=== PATIENT | female | born 1970 | race Caucasian/White ===

== ENCOUNTER 2018-02-01 14:12 | Inpatient (IN) ==
[2018-02-01] MEDS ORDERED: *HR* FentaNYL (PF) 100 MCG/2 ML VIAL IVP ONE ×3 (14:28→18:37)
--- NOTE | 2018-02-01 14:33 | Emergency Department Note ---
Disposition Clinical Impression: Wrist fracture Qualifiers: Encounter type: initial encounter Fracture type: closed Laterality: left Qualified Code(s): S62.102A - Fracture of unspecified carpal bone, left wrist, initial encounter for closed fracture Disposition: Admitted As Inpatient Condition: Good Time of Disposition: 17:47 General Adult HPI - General Chief complaint: ED Extremity Injury, Upper Stated complaint: fell off ladder, left side distal arm pain Time Seen by Provider: 02/01/18 14:18 Source: patient Mode of arrival: ambulatory Limitations: no limitations Nursing Notes Reviewed: Yes Vital Signs Reviewed: Yes - History of Present Illness HPI Narrative: 47-year-old female presents for evaluation after a fall. Patient had a mechanical fall approximately 6 feet from a ladder. States the latter was on top for. Patient does not exactly know the mechanism of the fall but does state that she did not lose conscious. No nausea vomiting. No neck or back pain. Patient is primarily complaining of pain in her left arm. His pain is worse with movement. Denies any abdominal pain. No chest pain. Patient denies being on blood thinners. Pain Scale: 10 - Related Data Previous Rx's Medication Instructions Recorded Naproxen [Naprosyn] 500 mg PO BID PRN #14 tablet 05/03/15 Amoxicillin/Clavulanate [Augmentin] 875 mg PO BIDWM 7 Days tablet 01/18/16 Methocarbamol [Robaxin] 500 mg PO Q8HR #12 tablet 02/18/17 Naproxen [Naprosyn] 500 mg PO BID #20 tablet 02/18/17 Tramadol HCl [Ultram] 50 mg PO TID PRN #6 tab 03/05/17 Allergies Allergy/AdvReac Type Severity Reaction Status Date / Time Sulfa (Sulfonamide AdvReac See Verified 02/18/17 10:52 Antibiotics) Comments All systems ED: reviewed and negative except as stated. Constitutional: Denies: fever Cardiovascular: Denies: chest pain Respiratory: Denies: cough Gastrointestinal: Denies: abdominal pain, nausea, vomiting Musculoskeletal: Denies: back pain Past Medical History - Past Medical History Source: patient Medical history: Reports: no medical history Surgical history: Reports: hysterectomy Psychiatric history: Reports: anxiety, depression HOSPITAL LABORATORY TECHNICIAN history: Reports: no HOSPITAL LABORATORY TECHNICIAN history - Social History Smoking Status: Current some day smoker Smokeless Tobacco Status: No Alcohol use: Reports: none, occasionally Drug use: Reports: none Physical Exam - General Limitations: no limitations General appearance: alert, in no apparent distress - Head Head exam: atraumatic, normocephalic, normal inspection, other (No signs of basal skull fracture.) - Eye Eye exam: Present: normal appearance, EOMI - ENT ENT exam: normal exam, mucous membranes moist - Neck Neck exam: Present: normal inspection, trachea midline - Chest Chest inspection: Present: normal inspection, symmetric chest wall rise - Respiratory Respiratory exam: Present: normal lung sounds bilaterally. Absent: respiratory distress - Cardiovascular Cardiovascular exam: Present: regular rate, normal rhythm. Absent: systolic murmur - Abdominal Exam Abdominal exam: Present: soft, Non-Tender - Extremities Exam Extremities exam: Present: other (Left upper extremity is held in position of comfort. Flexion at the elbow. Tenderness diffusely along the left forearm. Palpable radial pulse. Brisk cap refill.) - Expanded Upper Extremity Exam Shoulder exam: Present: normal inspection. Absent: tenderness - Back Exam Back exam: Present: normal inspection. Absent: tenderness - Neurological Exam Neurological exam: Present: alert, oriented X3, CN II-XII intact - Skin Skin exam: Present: warm, dry, intact, normal color Course Course Narrative: Patient will get IV IV pain medication as well as imaging of the left arm. Patient with CT of the head neck. Given the mechanism. - Reevaluation(s) Reevaluation #1: Patient seen and examined. Patient orthopedics. Awaiting callback. Patient's updated on plan of care. Patient has been nothing by mouth since approximately 1:30p Time: 15:28 - Consultations Consultation #1: Discussed the case with orthopedics who recommended closed reduction and follow- up on Saturday. Time: 15:36 Consultation #2: Discussed the case with Dr. Hair who felt it the patient should undergo surgery either later today or tomorrow given the difficulty with a reduction. Patient will be admitted to his service. Time: 17:46 Vital Signs Temperature 98.5 F 02/01/18 14:14 Pulse Rate 76 02/01/18 14:14 Respiratory Rate 15 02/01/18 14:14 Blood Pressure 134/94 02/01/18 14:14 O2 Sat by Pulse Oximetry 100 02/01/18 14:14 Temperature 98.5 F 02/01/18 14:14 Pulse Rate 82 02/01/18 18:51 Respiratory Rate 15 02/01/18 18:51 Blood Pressure 136/96 02/01/18 18:51 O2 Sat by Pulse Oximetry 97 02/01/18 18:51 Oxygen Delivery Oxygen Delivery [1711] Nasal Cannula Oxygen Delivery [1706] Nasal Cannula Oxygen Delivery Room Air Procedures - Orthopedic Fracture Reduction Fracture #1 Consent Obtained: verbal consent, written consent Time Out Performed: Yes Side: left Fracture Reduction Location: other ASA Classification: CLASS I-Normal, healthy patient Analgesia: procedural sedation Technique: direct manipulation Post Reduction X-rays Demonstrate: acceptable reduction Post-reduction neuro exam: intact Post-reduction vascular exam: intact Splint Applied: Yes Patient Tolerated Procedure: well, no complications - Procedural Sedation Indication: fracture/dislocation reduction H&P (including ROS) documented in medical record: Yes Previous reaction to sedatives/anesthetics: No Dentition: No loose teeth or bridges Airway Assessment: Patient can open mouth completely, TMJ function normal Possible difficult airway: No ASA Classification: CLASS I-Normal, healthy patient, CLASS II-Mild systemic disease Plan of Care: Pt appropriate candidate for procedure/moderate/conscious sedation , Risks/benefits of procedure/sedation discussed w/ patient/family Preparation: prison guard supervisor applied, pulse oximeter, capnometry used, supplemental O2 applied, suction/airway equipment at bedside Ketamine: IV Ketamine Dose: 85 Patient Tolerated Procedure: well, no complications Complications: none Medical Decision Making - MDM Narrative Medical decision making narrative: Patient presents after a fall from a ladder. Patient's Norvasc intact. Primary pain is over the left distal forearm. Noted to have acute deformity and presumed fracture. Discussed the initial fracture management with the orthopedic doctor special education instructor recommended closed reduction. Patient was consulted for procedural sedation reduction. Patient was neurovascular intact following the reduction. Orthopedic was contacted regarding post reduction films. Given the difficulty with a close reduction in the severity of the fracture the patient will be admitted to the orthopedic service for surgery. Did order preoperative labs with type and screen and EKG. - Radiology Data Radiology results reviewed: Yes I reviewed the patient's radiology results. Wrist X-Ray 02/01/18 14:29 IMPRESSION: Closed comminuted apex volar angulated intra-articular impacted fracture distal left radius. No acute osseous injury of the left elbow. D/ / Nishant Askew MD / Nishant Askew MD Interpreting Provider: Nishant Askew MD Cervical Spine CT 02/01/18 14:30 IMPRESSION: No acute abnormality of the cervical spine. D/ / Jayden Christopher MD / Jayden Christopher MD Interpreting Provider: Jayden Christopher MD Elbow X-Ray 02/01/18 14:30 IMPRESSION: Closed comminuted apex volar angulated intra-articular impacted fracture distal left radius. No acute osseous injury of the left elbow. D/ / Nishant Askew MD / Nishant Askew MD Interpreting Provider: Nishant Askew MD Cervical Spine CT 02/01/18 14:30 IMPRESSION: No acute abnormality of the cervical spine. D/ / Jayden Christopher MD / Jayden Christopher MD Interpreting Provider: Jayden Christopher MD Elbow X-Ray 02/01/18 14:30 IMPRESSION: Closed comminuted apex volar angulated intra-articular impacted fracture distal left radius. No acute osseous injury of the left elbow. D/ / 02/01/2018 15:11:43 Nishant Askew MD / velma Interpreting Provider: Nishant Askew MD Head CT 02/01/18 14:30 IMPRESSION: No acute abnormality of the head. D/ / Jayden Christopher MD / Jayden Christopher MD Interpreting Provider: Jayden Christopher MD Wrist X-Ray 02/01/18 17:13 IMPRESSION: Acute traumatic comminuted intra-articular distal left radial fracture with dorsal angulation slightly improved since prior exam. D/ / 02/01/2018 18:02:29 Robert Laboy MD / darryl Interpreting Provider: Robert Laboy MD Wrist CT 02/01/18 17:45 IMPRESSION: Acute traumatic comminuted intra-articular distal left radial fracture with dorsal angulation and displacement. D/ / 02/01/2018 18:38:35 Robert Laboy MD / darryl Interpreting Provider: MD Lis Rodgers - Lis Situation: Demographics Background: Presenting Complaint Assessment: Vital Signs, Course and respsone to treatment, Patient/Family Expectation Recommendation: Barrier(s) to disposition, Recommendation based on pending studies, treatments, or consults Lis Report Given to: Dr. Carson Hays Repor Time: 17:47 Attestation Statement - Attestation Attestation: Patient was seen with resident physician. I reviewed the history, physical, assessment and plan, and agree with the findings. I also personally evaluated this patient and had [id number] time with this patient. 47-year-old female fell from 6-8 feet off a ladder landing on her left arm and wrist. Denies loss of consciousness. Denies head or neck injury. She was able to get up and a biliary afterwards. Has severe pain to the left wrist. Denies other injuries. Review systems as above remainder negative. Physical exam vitals are stable. ENT is unremarkable. Heart regular rhythm and rate. Lungs clear. Abdomen soft nontender. Extremities patient has obvious deformity to the left distal forearm. Pulses are intact and she can move all of her fingers though with pain. Sensation is also intact distal to the site of injury. Neurologically intact. Skin no obvious rashes. Psych very anxious. ED course we will get x-rays of the wrist. X-ray revealed a left distal comminuted interarticular radius fracture with angulation. We spoke with orthopedics they requested we attempt to reduce the fracture. Using conscious sedation with ketamine this was attempted. Unfortunately the fracture fragments were somewhat unstable so we can get him in the place but they would just look back. We put it in the best position possible splinted the area and had a repeat x-ray which did not show significant improvement unfortunately. At this point we recalled orthopedic surgery and they suggested admitting the patient for ORIF. Patient was happy with this plan of action. She was kept nothing by mouth while in the emergency department if pain was controlled. She was taken to the OR for surgical correction of her unstable wrist fracture. Agree with resident physician assessment and plan.
[2018-02-01] MEDS ORDERED: Ketamine *HR* 14 MG in 0.9 % Sodium Chloride 100 ML IVPB ONE (15:10)
[2018-02-01] MEDS ORDERED: *HR* Ketamine 500 MG/5 ML MDV IVP ONE ×2 (15:35→16:45)
[2018-02-01] MEDS ORDERED: 0.9 % Sodium Chloride 1,000 ML IVC ONE (15:35)
[2018-02-01] MEDS ORDERED: Bupivacaine/EPI 1:200k 0.5%PF 10 ML VIAL ONE (19:17)
--- NOTE | 2018-02-01 19:20 | Orthopedic History & Physical ---
Date of Encounter: 02/01/18 Time of Encounter: 19:17 Assessment and Plan (1) Wrist fracture Current visit: Yes Status: Acute I did discuss the diagnosis in detail with the patient. She does have a significantly angulated shortened and displaced distal radius fracture. Treatment options were discussed and my recommendation was for reduction and fixation to reduce and stabilize the wrist. The risks discussed included but were not limited to stiffness, bleeding, infection, blood clots, damage to neurovascular structures, tendons, ligaments, and bone. Also discussed was the risk of continued symptoms and possible need for further procedures. I did discuss the anesthesia risks including stroke, heart attack, and . I did discuss the reasonable, foreseeable postoperative course with the patient. She did wish to proceed and consent was obtained. Qualifiers: Encounter type: initial encounter Fracture type: closed Laterality: left Qualified Code(s): S62.102A - Fracture of unspecified carpal bone, left wrist , initial encounter for closed fracture History of Present Illness HPI: Ms. Costello is a 47 year old female who fell 6 feet off a ladder sustaining an injury to her left wrist. She went to the emergency department where an x-ray demonstrated a distal radius fracture which was quite angulated and displaced. The ER attempted a reduction without significant change. Given the position of her fracture and concern for median nerve deficits overnight the patient was admitted for reduction and fixation tonight. On my evaluation she complains of isolated pain to the left wrist. She indicates some mild nonprogressive numbness to the tips of her digits. Pain is controlled at this point. No other associated signs or symptoms. Any movement of the wrist or the digits is exacerbate pain. No other modifying factors. Past Med Surg Social Fam HX - Past Medical History Medical history: no medical history Psychiatric history: anxiety, depression - Past Surgical History Surgical History: hysterectomy - Social History Smoking Status: Current some day smoker Smokeless Tobacco Status: No Alcohol use: none, occasionally Drug use: none Medications and Allergies Naproxen [Naprosyn] 500 mg PO BID PRN #14 tablet 05/03/15 [Rx] Amoxicillin/Clavulanate [Augmentin] 875 mg PO BIDWM 7 Days tablet 01/18/16 [Rx] Methocarbamol [Robaxin] 500 mg PO Q8HR #12 tablet 02/18/17 [Rx] Naproxen [Naprosyn] 500 mg PO BID #20 tablet 02/18/17 [Rx] Tramadol HCl [Ultram] 50 mg PO TID PRN #6 tab 03/05/17 [Rx] 3 Allergy/AdvReac Type Severity Reaction Status Date / Time Sulfa (Sulfonamide AdvReac See Verified 02/18/17 10:52 Antibiotics) Comments All Systems Reviewed: Constitutional and musculoskeletal systems were reviewed and are negative unless otherwise stated in history of present illness. Physical Exam - Constitutional Vitals: Temp Pulse Resp BP Pulse Ox 98.5 F 82 15 136/96 97 02/01/18 14:14 02/01/18 18:51 02/01/18 18:51 02/01/18 18:51 02/01/18 18:51 Constitutional -Vitals reviewed -The patient is well developed and well nourished. -Mood is pleasant. -The patient is well groomed. Psychiatric -The patient is fully alert and oriented x 3. Respiratory: -Respiratory effort normal Abdomen: -Soft abdomen -Non tender -Non distended: Left upper extremity: -Significant deformity consistent with her known injury. -Tenderness to palpation of the wrist diffusely. -No significant pain with passive motion of the shoulder or elbow. -I did not range the wrist given her known injury. She can grossly flex and extend the digits and thumb. -Sensation grossly intact to light touch throughout the median, radial, and ulnar distributions. -Radial pulse is present; Fingers have good capillary refill. Right upper extremity: -No deformities. The overlying skin is intact. No obvious signs of acute trauma. -No tenderness to palpation throughout. -No significant pain with passive motion of the shoulder, elbow, wrist, and fingers within the limits of the bed. -Able to make an "OK" sign, cross the index and long fingers, and extend the thumb. -Sensation grossly intact to light touch throughout the median, radial, and ulnar distributions. -Radial pulse is present; Fingers have good capillary refill. Left lower extremity: -No deformities. The overlying skin is intact. No obvious signs of acute trauma. -No tenderness to palpation throughout. -No pain with passive motion of the hip, knee, ankle, and toes within the limits of the bed. -No pain with axial loading of the thigh. -Able to dorsiflex and plantarflex the ankle and toes. -Sensation is grossly intact to light touch throughout the sural, saphenous, superficial peroneal, and deep peroneal distributions. -Toes have good capillary refill. Right lower extremity: -No deformities. The overlying skin is intact. No obvious signs of acute trauma. -No tenderness to palpation throughout. -No pain with passive motion of the hip, knee, ankle, and toes within the limits of the bed. -No pain with axial loading of the thigh. -Able to dorsiflex and plantarflex the ankle and toes. -Sensation is grossly intact to light touch throughout the sural, saphenous, superficial peroneal, and deep peroneal distributions. -Toes have good capillary refill. Diagnostic Imaging: I did personally review and interpret x-rays of the left wrist show a significantly angulated and shortened distal radius fracture with intra- articular extension. Postoperative x-rays show no significant change. CT scan does demonstrate intra -articular nature of her injury. Results - Labs Labs: All other labs normal. - VTE Reasons for not Prescribing Prophylaxis: Treatment not Indicated - Low risk for VTE
[2018-02-01] MEDS ORDERED: Lidocaine -MPF 4% 5 ML AMPUL ONE (19:23)
[2018-02-01] MEDS ORDERED: Lidocaine -MPF 2% 2 ML VIAL ONE (19:23)
[2018-02-01] MEDS ORDERED: *HR* Propofol 200 MG/20 ML VIAL IVP ONE (19:24)
[2018-02-01] MEDS ORDERED: *HR* FentaNYL (PF) 100 MCG/2 ML VIAL ONE ×2 (19:24→20:14)
[2018-02-01] MEDS ORDERED: *HR* Midazolam HCl 2 MG/2 ML VIAL ONE (19:24)
[2018-02-01] MEDS ORDERED: Albuterol 2.5 MG/3 ML NEBULIZER ONE (19:29)
[2018-02-01] MEDS ORDERED: Acetaminophen IV 1,000 MG/100 ML INFUS..BTL ONE (19:32)
[2018-02-01] MEDS ORDERED: Famotidine 20 MG/2 ML VIAL ONE (19:33)
[2018-02-01] MEDS ORDERED: Albuterol 2.5 MG/3 ML NEBULIZER IH ONE (19:33)
[2018-02-01] MEDS: Ringers Solution, Lactated 1,000 ML IVC SCH ×2 (19:35→21:00)
--- NOTE | 2018-02-01 19:39 | Anesthesia Evaluation PreOp ---
Date of Encounter: 02/01/18 Time of Encounter: 19:37 - Past History Planned Operation: ORIF Distal Radius Cardiac History: Denies any Significant Hx Pulmonary History: Smoker STEEPLECHASE JOCKEY History: Other (Anxiety/depression) Other Medical History: Denies Any Significant HX Anesthesia History: No Prior Anesthetic Complications, Past Anesthesia (Hyster) : No Alcohol Use: none, occasionally Drug use: none Medications and Allergies Naproxen [Naprosyn] 500 mg PO BID PRN #14 tablet 05/03/15 [Rx] Amoxicillin/Clavulanate [Augmentin] 875 mg PO BIDWM 7 Days tablet 01/18/16 [Rx] Methocarbamol [Robaxin] 500 mg PO Q8HR #12 tablet 02/18/17 [Rx] Naproxen [Naprosyn] 500 mg PO BID #20 tablet 02/18/17 [Rx] Tramadol HCl [Ultram] 50 mg PO TID PRN #6 tab 03/05/17 [Rx] 3 Allergy/AdvReac Type Severity Reaction Status Date / Time Sulfa (Sulfonamide AdvReac See Verified 02/18/17 10:52 Antibiotics) Comments - Meds/Allergy Pre-op Review Medications Reviewed: Yes Allergies Reviewed: Yes Beta Blockers on Current Med List: No Anesthesia Results - Labs Impressions Cervical Spine CT 02/01/18 14:30 IMPRESSION: No acute abnormality of the cervical spine. D/ / Jayden Christopher MD / Jayden Christopher MD Interpreting Provider: Jayden Christopher MD Elbow X-Ray 02/01/18 14:30 IMPRESSION: Closed comminuted apex volar angulated intra-articular impacted fracture distal left radius. No acute osseous injury of the left elbow. D/ / 02/01/2018 15:11:43 Nishant Askew MD / velma Interpreting Provider: Nishant Askew MD Head CT 02/01/18 14:30 IMPRESSION: No acute abnormality of the head. D/ / Jayden Christopher MD / Jayden Christopher MD Interpreting Provider: Jayden Christopher MD Wrist X-Ray 02/01/18 17:13 IMPRESSION: Acute traumatic comminuted intra-articular distal left radial fracture with dorsal angulation slightly improved since prior exam. D/ / 02/01/2018 18:02:29 Robert Laboy MD / darryl Interpreting Provider: Robert Laboy MD Wrist CT 02/01/18 17:45 IMPRESSION: Acute traumatic comminuted intra-articular distal left radial fracture with dorsal angulation and displacement. D/ / 02/01/2018 18:38:35 Robert Laboy MD / darryl Interpreting Provider: Robert Laboy MD Anesthesia Exam Vital Signs Temp Pulse Pulse Pulse Resp Resp Resp 02/01/18 18:51 82 15 02/01/18 17:36 100 16 02/01/18 17:07 13 02/01/18 17:06 71 15 02/01/18 17:05 74 115 15 15 02/01/18 16:05 85 15 02/01/18 15:55 73 15 02/01/18 15:15 73 16 02/01/18 14:14 98.5 F 92 15 BP BP BP Pulse Ox 02/01/18 18:51 136/96 97 02/01/18 17:36 135/84 99 02/01/18 17:07 134/91 100 02/01/18 17:06 134/91 100 02/01/18 17:05 134/91 186/133 02/01/18 16:05 134/91 100 02/01/18 15:55 141/103 100 02/01/18 15:15 139/100 100 02/01/18 14:14 134/94 93 Intake and Output 02/01/18 02/01/18 02/01/18 07:59 15:59 23:59 Intake Total 100.28 / 100.28 Balance 100.28 / 100.28 Intake: IV Fluids 100.28 / 100.28 Ketamine 14 MG In 0.9 % Sodium 100.28 / 100.28 Chloride 100 ML @ 200 mls/hr IVPB ONCE ONE Rx#:[id number] Other: Weight 83.461 kg Patient Weight 02/01/18 23:59 Weight 83.461 kg Height: 5'6" Weight: 184# BMI = 30 - HEENT Pupil (Motor): Pupils equal, EOMI Mallampati: II Teeth: Normal Oral Opening: Greater than 3 - STEEPLECHASE JOCKEY LOC: Oriented STEEPLECHASE JOCKEY Sensory: Normal: RUE, LUE, RLE, LLE, Face - Cardiac Rhythm: Regular Murmur: None - Pulmonary Breath Sounds: bilateral Clear Respiratory Effort: Symmetrical Anesthesia Assess/Plan ASA Score: 2 (Anxiety/Depression, Smoker) Modified Tito Scale for Level of Consciousness: Cooperative, oriented, and tranquil Anesthetic Plan: General Monitoring Plan: Standard Monitors Recovery Plan: PACU Anes Supervising Prov Stmt: PT seen/evaluated, R&B Discussed, questions answered and consent obtained. Alberto Etienne MD
[2018-02-01] MEDS ORDERED: Pregabalin 75 MG CAPSULE ONE (19:43)
[2018-02-01] MEDS ORDERED: *HR* Magnesium Sulfate 1 GM/2 ML VIAL ONE (20:36)
[2018-02-01] MEDS ORDERED: Ondansetron 4 MG/2 ML VIAL ONE (20:45)
[2018-02-01] MEDS ORDERED: Dexamethasone 4 MG/ML VIAL ONE (20:45)
[2018-02-01] MEDS ORDERED: *HR* HYDROmorphone (PF) 1 MG/ML SYRINGE ONE ×2 (21:03→22:21)
--- NOTE | 2018-02-01 21:17 | Orthopedic Operative Note ---
Date of procedure: 02/01/18 Procedure: OPERATIVE REPORT DATE OF PROCEDURE: 02/01/2018 SURGEON: Ralph Byrd MD DIGITAL PROJECT MANAGER(S): There are no assistants PREOPERATIVE DIAGNOSIS: Left distal radius fracture POSTOPERATIVE DIAGNOSIS: Left distal radius fracture PROCEDURE: Open reduction and internal fixation of the intra-articular distal radius fracture with 2 articular fragments ANESTHESIA: General anesthesia PREOPERATIVE ANTIBIOTICS: 2 g of Ancef ESTIMATED BLOOD LOSS: 1 milliliters IMPLANTS: [employer] Geminus volar locking distal radius plate LOCAL INJECTION: 0.5% bupivacaine with 1:200,000 epinephrine; 10 mL used in total PREOPERATIVE NOTE AND INDICATIONS: This patient is a 47-year-old female who sustained a left intra-articular distal radius fracture. An attempt at reduction in the urgency department failed. She wished to undergo the above procedure in order to realign and stabilize the left wrist. The surgical plan was discussed with the patient. The risks, benefits, alternatives, and potential complications of this procedure were discussed with the patient including injury to veins, arteries, nerves, tendons, ligaments, and bone. Also discussed were the risks of infection, bleeding, pain, blood clots, the possible need for a blood transfusion, the possible need for further procedures, heart attack, stroke, and . Additional risks include malunion , nonunion, hardware failure, tendon ruptures, complex regional pain syndrome, and the need to remove the hardware. All of this was explained in simple terms , and the patient verbalized understanding and wished to proceed. Consent was given to proceed with surgery. PROCEDURE: The patient was seen in the preoperative holding area where the identify and the consent were confirmed. The left wrist was marked. Final questions were answered. The patient was brought back to the operating room and placed supine on the operating room table. A huddle was performed with the patient and all vital surgical team members confirming patient identity, the correct procedure, and the correct operative site. Gen. anesthesia was administered. The left upper extremity was prepped and draped in the usual sterile fashion. A surgical time out was performed immediately preceding the incision with all personnel in the operating room to confirm patient identity, the correct operative site and extremity, correct radiographic studies, availability of appropriate surgical equipment, and agreement on the planned procedure. The limb was exsanguinated and the tourniquet was inflated. A volar Quinn incision was made and dissection proceeded carefully through the subcutaneous tissue through the interval between the brachioradialis and the flexor carpi radialis. The brachioradialis was taken down and the pronator quadratus was taken down. There are 2 articular fragments and multiple other fragments of comminution. These were reduced with traction and the definitive plate placed in K wired in place. Cortical screws were placed proximally and smooth pegs were placed distally. X-rays confirmed good reduction of the fracture. The DRUJ and wrist are stable after reduction and plating. The wound was copiously irrigated and the incision was closed with interrupted nylon stitches. The tourniquet was deflated and a soft, sterile dressing was applied followed by a volar short arm splint. The instrument, sponge, and needle counts were correct after wound closure. POST OPERATIVE PLAN: We will keep her overnight for pain control. 2 doses of Ancef. Discharge tomorrow. Was there an drilling assistant present: No Estimated blood loss (cc): 1
[2018-02-01] MEDS: *HR* HYDROmorphone (PF) 1 MG/ML SYRINGE IVP PRN ×4 (21:45→22:40)
--- NOTE | 2018-02-01 21:51 | Anesthesia Evaluation Post Op ---
Date of Encounter: 02/01/18 Time of Encounter: 23:06 - Vital Signs Vital Signs: Vital Signs/O2 Sat/Glucose, Most Current Vital Signs/O2 Sat/Glucose, Most Current Temp Pulse Resp BP Pulse Ox 02/01/18 23:02 74 12 120/86 96 02/01/18 22:52 97.7 F 77 12 130/96 97 02/01/18 22:42 80 10 131/98 92 02/01/18 22:32 82 10 130/96 96 02/01/18 22:22 97.8 F 82 16 133/100 99 02/01/18 22:12 87 16 129/95 99 02/01/18 22:02 82 16 135/99 99 02/01/18 21:52 97.6 F 84 16 129/93 99 02/01/18 21:42 83 16 125/93 93 02/01/18 21:34 85 16 127/94 95 02/01/18 21:22 84 16 115/84 99 02/01/18 21:12 98.8 F 87 16 101/70 98 02/01/18 19:35 16 136/96 97 - Lungs Lungs: Clear Ascult./Percussion - Airway Airway: Non-obstructed - Cardiovascular Regular Rate - Mental Status Mental Status: Alert & Oriented, Answers Appropriately - Pain Pain Scale: 1 Pain Scale used: AbadAlessia (Faces) (1) - Nausea Vomiting Nausea Vomiting: Not Present - Hydration Hydration: Ice chips, Has not voided - Discharge PostOp Status: Transfer Patient to floor Anes Supervising Prov Stmt: PT seen/evaluated, VSS and has met criteria for discharge to floor. - MD Lowell
[2018-02-01] MEDS ORDERED: Ketorolac 30 MG/ML VIAL ONE (21:52)
[2018-02-01] MEDS ORDERED: Ketorolac 30 MG/ML VIAL IVP ONE (21:53)
[2018-02-01] MEDS ORDERED: cloNIDine HCl 0.1 MG TABLET ONE (22:19)
[2018-02-01] MEDS ORDERED: *HR* Promethazine 25 MG/ML VIAL ONE (22:20)
[2018-02-01] MEDS ORDERED: cloNIDine HCl 0.1 MG TABLET PO ONE (22:27)
[2018-02-01] MEDS ORDERED: *HR* Promethazine 25 MG/ML VIAL IVP ONE (22:27)
[2018-02-01] MEDS ORDERED: *HR* OxyCODONE Immed Rel 5 MG TABLET PO PRN (23:18)
[2018-02-01] MEDS ORDERED: *HR* OxyCODONE/APAP 5/325 TABLET PO PRN (23:18)
[2018-02-01] MEDS ORDERED: Acetaminophen 325 MG TABLET PO PRN (23:18)
[2018-02-01] MEDS ORDERED: Ringers Solution, Lactated 1,000 ML IVC SCH (23:18)
[2018-02-01] MEDS ORDERED: Ketamine *HR* 500 MG/10 ML MDV IVP ONE (23:18)
[2018-02-01] MEDS ORDERED: Naloxone 0.4 MG/ML INJ IVP PRN (23:18)
[2018-02-02 01:00] LABS: Basophils % 0.3 %; Eosinophils % 0.1 %; Hematocrit 42.8 % (35.3-44.9); Hemoglobin 15.1 g/dL (11.5-15.4); Immature Granulocytes % 0.3 % (0-4); Lymphocytes # 1.1 K/mcL (0.6-4.6); Lymphocytes % 9.2 %; Mean Corpuscular HGB Conc 35.3 g/dL (31.6-35.5); Mean Corpuscular Hemoglobin 31.1 pg (28.0-33.3); Mean Corpuscular Volume 88.2 fL (83.0-100.0); Mean Platelet Volume 10.6 fL (9.4-12.4); Monocytes # 0.2 K/mcL (0.0-1.3); Monocytes % 1.5 %; Neutrophils # 10.2 K/mcL (1.6-8.9); Platelet Count 258 K/mcL (140-400); Red Blood Count 4.85 M/mcL (3.82-4.97); Red Cell Distribution Width 12.9 % (11.5-14.5); Segmented Neutrophils % 88.6 %
[2018-02-02 01:20] LABS: BUN/Creatinine Ratio 17 (6-26); Blood Urea Nitrogen 12 mg/dL (6-20); Calcium 8.4 mg/dL (8.6-10.3); Carbon Dioxide 23 mEq/L (23-29); Chloride 109 mEq/L (98-107); Glucose 155 mg/dL (70-105); Osmolality,Calculated 289 (280-300); Potassium 4.3 mEq/L (3.5-5.1); Sodium 138 mEq/L (136-145); eGFR For Non-African Americans > 60 (> 60)
--- NOTE | 2018-02-02 08:31 | Orthopedics Progress Note ---
Date of Encounter: 02/02/18 Time of Encounter: 08:29 - Assessment and Plan (1) Wrist fracture Current Visit: Yes Status: Acute Qualifiers: Encounter type: initial encounter Fracture type: closed Laterality: left Qualified Code(s): S62.102A - Fracture of unspecified carpal bone, left wrist , initial encounter for closed fracture Subjective Interval history: S: Resting comfortably in bed. Significant improvement of her preoperative pain. O: Afebrile on the vital signs are stable Short arm splint and left upper extremity Fingers are freely mobile, sensate, and well-perfused A: Postoperative day 1 after open reduction and internal fixation of the left distal radius P: We will discharge her today Follow-up in the office in 2 weeks for stitch removal and placement in a removable brace No pushing, pulling, lifting with the left upper extremity Objective Vital signs: Vital Signs Temp Pulse Resp BP Pulse Ox 02/02/18 07:48 99.0 F 66 84/49 97 02/02/18 07:47 96 02/02/18 05:00 98.1 F 80 19 100/64 96 02/02/18 02:28 98.6 F 73 15 96/66 72 02/02/18 01:25 97.8 F 70 15 107/69 93 02/02/18 00:23 97.7 F 80 14 109/72 98 02/01/18 23:50 98.6 F 80 16 111/78 97 02/01/18 23:20 99 F 69 10 116/82 97 02/01/18 23:02 74 12 120/86 96 02/01/18 22:52 97.7 F 77 12 130/96 97 02/01/18 22:42 80 10 131/98 92 02/01/18 22:32 82 10 130/96 96 02/01/18 22:22 97.8 F 82 16 133/100 99 02/01/18 22:12 87 16 129/95 99 02/01/18 22:02 82 16 135/99 99 02/01/18 21:52 97.6 F 84 16 129/93 99 02/01/18 21:42 83 16 125/93 93 02/01/18 21:34 85 16 127/94 95 02/01/18 21:22 84 16 115/84 99 02/01/18 21:12 98.8 F 87 16 101/70 98 02/01/18 19:35 16 136/96 97 02/01/18 18:51 82 15 136/96 97 Intake and Output 02/01/18 02/02/18 02/02/18 23:59 07:59 15:59 Intake Total 1000 / 1100.28 100 / 100 Output Total Balance 999 / 1099.28 100 / 100 Intake: IV Fluids 1000 / 1000 100 / 100 Lactated Ringers 1,000 ML @ 25 1000 / 1000 mls/hr IVC .Q24H [facility] Rx#: [id number] Ancef 2,000 MG In 0.9 % Sodium 100 / 100 Chloride 100 ML @ 200 mls/hr IVPB Q8H [facility] Rx#:[id number] Output: Estimated Blood Loss Other: # Voids 1 - Labs CBC & BMP: 02/02/18 00:13 02/02/18 00:13 Labs: Abnormal lab results WBC 11.6 K/mcL (4.3-11.1) H 02/02/18 00:13 Neutrophils # 10.2 K/mcL (1.6-8.9) H 02/02/18 00:13 Chloride 109 mEq/L (98-107) H 02/02/18 00:13 Glucose 155 mg/dL (70-105) H 02/02/18 00:13 Calcium 8.4 mg/dL (8.6-10.3) L 02/02/18 00:13 - VTE Reasons for not Prescribing Prophylaxis: Treatment not Indicated - Low risk for VTE Documentation of Mechanical Device: Intermittent pneumatic compression device Consult Discharge Plan - Plan Additional Instructions: DISCHARGE INSTRUCTIONS Dr. Byrd DISCHARGE DIAGNOSIS/PROCEDURE Open reduction and internal fixation of the left distal radius ACTIVITY: Avoid aggressive activities with the left upper extremity; no pushing, pulling, or lifting with the left upper extremity. WOUND CARE: Keep the splint and dressings clean, dry, and do not take off. DRIVING: Do not drive while taking narcotic pain medications. DIET: Begin with clear liquids, and then increase your diet as you feel comfortable. MEDICATIONS: Pain: Percocet Vitamin C: Taking 500 mg of Vitamin C by mouth daily may reduce your risk of having a chronic pain syndrome. FOLLOW-UP Follow-up with Dr. Byrd at the office 2 weeks from the surgery date for a post operative evaluation. Call the office at [phone] to schedule or confirm your appointment. WHEN TO CALL THE DOCTOR OR WHEN TO SEEK CARE BEFORE YOUR APPOINTMENT 1. Excess swelling or increased numbness not made better by elevating the hand and moving the fingers. 2. Uncontrolled pain. 3. A color change in your hand or fingers. 4. Worsening redness or drainage. 5. Fevers over 100.5 degrees F or 38.1 degrees C. 6. Any symptoms that bring concern to you. Referrals: Brittny Jaquez, [employer] SUPERVISOR [Primary Care Provider] -
--- NOTE | 2018-02-02 08:34 | Discharge Summary ---
Orders not resulted at time of discharge: Pending orders 02/01/18 18:53 ECG 12 lead ECG [ECG] Stat 02/01/18 20:30 XR wrist complete 3V LT [XR] Routine Date of Encounter: 02/02/18 Time of Encounter: 08:32 - Discharge Diagnosis (1) Wrist fracture Priority: Primary Status: Acute Qualifiers: Encounter type: initial encounter Fracture type: closed Laterality: left Qualified Code(s): S62.102A - Fracture of unspecified carpal bone, left wrist , initial encounter for closed fracture - Hospital Course Hospital course: Ms. Costello is a 47 year old female - Time Spent with Patient Total time spent providing and/or coordinating discharge services: - Discharge Medications Prescriptions: Oxycodone HCl/Acetaminophen [Percocet 5-325 mg Tablet] 1 each PO Q6H PRN 7 Days #28 tablet PRN Reason: Pain Home Medications: Citalopram Hydrobromide [Celexa] 40 mg PO DAILY 02/02/18 [History] Estradiol DAILY 02/02/18 [History] Gabapentin [Neurontin] 300 mg PO HS 02/02/18 [History] Methylphenidate HCl [Concerta] 54 mg PO DAILY 02/02/18 [History] Oxycodone HCl/Acetaminophen [Percocet 5-325 mg Tablet] 1 each PO Q6H PRN 7 Days #28 tablet 02/02/18 [Rx] Vitamin B Complex [B Complex] 1 each PO DAILY 02/02/18 [History] Allergies/Adverse Reactions: 3 Allergy/AdvReac Type Severity Reaction Status Date / Time Sulfa (Sulfonamide AdvReac See Verified 02/18/17 10:52 Antibiotics) Comments Date of admission: 02/01/18 17:52 Primary care physician: Brittny Jaquez CNP - VTE Reasons for not Prescribing Prophylaxis: Treatment not Indicated - Low risk for VTE Documentation of Mechanical Device: Intermittent pneumatic compression device Labs on day of discharge: Labs from last 24 hours 02/02/18 02/02/18 02/02/18 00:13 00:13 00:13 WBC 11.6 H RBC 4.85 Hgb 15.1 Hct 42.8 MCV 88.2 MCH 31.1 MCHC 35.3 RDW 12.9 Plt Count 258 MPV 10.6 Immature Gran % 0.3 Seg Neutrophils % 88.6 Lymphocytes % 9.2 Monocytes % 1.5 Eosinophils % 0.1 Basophils % 0.3 Neutrophils # 10.2 H Lymphocytes # 1.1 Monocytes # 0.2 Eosinophils # 0.0 Basophils # 0.0 Sodium 138 Potassium 4.3 Chloride 109 H Carbon Dioxide 23 BUN 12 Creatinine 0.70 Est GFR ( Amer) > 60 Est GFR (Non-Af Amer) > 60 BUN/Creatinine Ratio 17 Glucose 155 H Calculated Osmolality 289 Calcium 8.4 L Blood Type A POSITIVE Antibody Screen NEGATIVE - Impressions ITS Impressions Fluoroscopy 02/01/18 20:30 IMPRESSION: Intraprocedural fluoroscopic spot images as above. See separate procedure report for more information. D/ / Saurav Salvador / Saurav Salvador Interpreting Provider: Saurav Salvador - Patient Status Disposition: Home, Self-Care Condition: Good - Discharge Instructions Follow Up With: Brittny Jaquez, HOME VISIT FIELD CARE MANAGER [Primary Care Provider] - Additional Instructions: DISCHARGE INSTRUCTIONS Dr. Byrd DISCHARGE DIAGNOSIS/PROCEDURE Open reduction and internal fixation of the left distal radius ACTIVITY: Avoid aggressive activities with the left upper extremity; no pushing, pulling, or lifting with the left upper extremity. WOUND CARE: Keep the splint and dressings clean, dry, and do not take off. DRIVING: Do not drive while taking narcotic pain medications. DIET: Begin with clear liquids, and then increase your diet as you feel comfortable. MEDICATIONS: Pain: Percocet Vitamin C: Taking 500 mg of Vitamin C by mouth daily may reduce your risk of having a chronic pain syndrome. FOLLOW-UP Follow-up with Dr. Byrd at the office 2 weeks from the surgery date for a post operative evaluation. Call the office at [phone] to schedule or confirm your appointment. WHEN TO CALL THE DOCTOR OR WHEN TO SEEK CARE BEFORE YOUR APPOINTMENT 1. Excess swelling or increased numbness not made better by elevating the hand and moving the fingers. 2. Uncontrolled pain. 3. A color change in your hand or fingers. 4. Worsening redness or drainage. 5. Fevers over 100.5 degrees F or 38.1 degrees C. 6. Any symptoms that bring concern to you.
[2018-02-02 10:43] VITALS: BP 100/65
== END 2018-02-02 12:31 | disposition home or self-care (01) | DRG 512 ==
LOC: EMEROOARM 14:12 → 3NENU 17:52
PROVIDERS: ADMIT Orthopaedic Surgery Hand Surgery; ATTEND Orthopaedic Surgery Hand Surgery